=== PATIENT | female | born 1985 | race Caucasian/White ===

== ENCOUNTER → 2020-03-13 13:18 | Outpatient (CLI) | payer OTHER, SELFPAY ==
--- NOTE | ~2020-03-13 | US_ITS ---
EXAMINATION: US venous doppler [facility] DATE: 03/13/2020 13:52 INDICATION: Left lower limb pain and swelling. Varicose veins. TECHNIQUE: Grayscale ultrasound images without and with compression and Doppler ultrasound images of the left lower extremity veins were obtained. COMPARISON: None. FINDINGS: The visualized portions of left common femoral vein, profunda (deep) femoral vein, femoral vein, popl iteal vein, peroneal veins, posterior tibial veins, gastrocnemius vein, soleal vein and greater saphe nous vein outflow are patent. IMPRESSION: 1. No deep venous thrombosis in the left lower limb. Reviewed, dictated and finalized at location A.
== END ==
PROVIDERS: PCP Physician Assistant
DX: M79.669 Pain in unspecified lower leg (principal)
CPT/HCPCS: 93971

== ENCOUNTER 2020-04-28 11:47 | Inpatient (IN) | payer OTHER, SELFPAY ==
[2020-04-28] VITALS (8 sets, daily range): BP systolic 93–144; BP diastolic 53–88; PULSE 100–124; RESP 16–27; TEMP 37–39.4; O2SAT 94–100
--- NOTE | ~2020-04-28 | XR_ITS ---
CORRECTED REPORT Report associated to incorrect patient moved from [id number]. 04/28/20 [facility] [place] EXAMINATION: XR chest 2V EXAM DATE: 04/28/2020 14:44 INDICATION: Shortness of breath, rapid heart rate, nausea vomiting. Gallbladder disease. TECHNIQUE: Frontal and lateral projections of the chest obtained and reviewed. Comparison is made to prior examination from 11/08/2019. FINDINGS: The lungs are clear. There are no pleural effusions. The cardiomediastinal silhouette is within normal limits. There is no pneumothorax suspected. The bones and soft tissues are unremarkable. IMPRESSION: No acute cardiopulmonary findings. Reviewed, dictated and finalized at location B. VALERY
--- NOTE | ~2020-04-28 | US_ITS ---
EXAMINATION: US right upper quadrant DATE: 04/28/2020 18:10 INDICATION: Upper abdominal pain, transaminitis TECHNIQUE: Multiple grayscale and Doppler ultrasound images of the abdomen were obtained. COMPARISON: None available FINDINGS: The examination is limited by the patient's body habitus. Bowel gas obscures visualization of the pancreas. The visualized portions of the pancreas are unremarkable. The liver demonstrates inc reased echogenicity, heterogenous echotexture, and decreased through transmission. No surface nodular ity. Normal hepatopetal flow in the main portal vein. There appears to be sludge in the gallbladder. No gallbladder wall thickening or pericholecystic fluid are identified. The normal common bile duct m easures 4 mm. Sonographic Devries sign is positive. IMPRESSION: 1. Possible gallbladder sludge and positive sonographic Devries sign without gallbladder wall thickeni ng or pericholecystic fluid. Consider nuclear hepatobiliary scan if there is high clinical concern fo r cholecystitis. 2. Diffuse hepatic steatosis. Reviewed, dictated and finalized at location A. IMPRESSION: 1. Possible gallbladder sludge and positive sonographic Devries sign without gal lbladder wall thickening or pericholecystic fluid. Consider nuclear hepatobilia ry scan if there is high clinical concern for cholecystitis. 2. Diffuse hepatic steatosis.
--- NOTE | ~2020-04-28 | MR_ITS ---
EXAMINATION: MR MRCP wo/w con/w 3D wo ind DATE: 04/30/2020 13:41 INDICATION: Right upper quadrant abdominal pain. Fever. TECHNIQUE: Magnetic resonance imaging (MRI) of the abdomen was performed without and with 20 mL Multi Cara intravenous contrast. Sequences included coronal T2-weighted FS FSE, coronal T2-weighted FSE, a xial T1-weighted LAVA, coronal FS FIESTA, axial dual-echo T1-weighted SPGR, coronal lava-FLEX, sagitt al T2-weighted FSE, axial T2-weighted FSE, and axial DWI. Thick-slab T2-weighted FSE images were obta ined for magnetic resonance cholangiopancreatography (MRCP). Maximum intensity projection 3-D reconst ructions of the volumetric data were created by the technologist. Postcontrast sequences included cor onal LAVA-flex and time course of axial T1-weighted LAVA. COMPARISON: Ultrasound 04/28/2020, CT abdomen and pelvis 04/28/2020, hepatobiliary scintigraphy 04/28/20 20 FINDINGS: ABDOMEN MRI: There is diffuse hepatic steatosis. The gallbladder is normal in size and contains filli ng defects that may be sludge or stones. There is a small sliding hiatal hernia. The spleen, pancreas , adrenal glands, and kidneys are normal. There are no dilated loops of bowel. There are no pathologi jer enlarged lymph nodes. There is no free intraperitoneal fluid. ABDOMEN MRCP: The common duct is normal and measures 3 mm. No choledocholithiasis. IMPRESSION: 1. Filling defects in the gallbladder that may be sludge or stones. 2. Diffuse hepatic steatosis. 3. Small sliding hiatal hernia. Reviewed, dictated and finalized at location A.
--- NOTE | ~2020-04-28 | CT_ITS ---
EXAMINATION: CT abdomen pelvis w con INDICATION: Upper abdominal pain TECHNIQUE: Computed tomographic images of the abdomen and pelvis were obtained after the administrati on of 100 cc of Omnipaque 350 intravenous contrast. The dose-length product (DLP) was 1523.36 mGy-cm. Automated exposure control and iterative reconstruction technique were employed. COMPARISON: None available FINDINGS: Minimal dependent atelectasis is present in the lung bases. The heart size is normal. The l iver is diffusely low in attenuation when compared with the spleen, consistent with hepatic steatosis . There is a small sliding hiatal hernia. The gallbladder, spleen, pancreas, and adrenal glands are n ormal. The kidneys are unremarkable. No pathologically enlarged abdominal or pelvic lymph nodes are i dentified. There is no free intraperitoneal gas or evidence of bowel obstruction. The appendix is nor mal. There is mild lumbar spondylosis. IMPRESSION: 1. Small sliding hiatal hernia. 2. Diffuse hepatic steatosis. Reviewed, dictated and finalized at location A.
--- NOTE | ~2020-04-28 | NM_ITS ---
EXAMINATION: NM hepatobiliary wo pharm DATE: 04/29/2020 14:29 INDICATION: Right upper quadrant pain COMPARISON: None. TECHNIQUE: 5.1 mCi Tc-99m mebrofenin (Choletec) was administered intravenously. Scintigraphic images of the abdomen were obtained for six hours. FINDINGS: There is normal clearance of radiotracer from the blood pool. There is homogeneous tracer u ptake by the liver. At 60 minutes, activity had not progressed the bowel or gallbladder. Minimal acti vity is seen in the bowel at the 3.5 hours time point. Mild increase in bowel activity is seen at the six hour time point with absent activity in the gallbladder. IMPRESSION: 1. Delayed progression of activity from the liver into the bowel and gallbladder by 60 minute time p oint, consistent with hepatic dysfunction. 2. No gallbladder activity at the six hour time point, consistent with gallbladder dysfunction. Reviewed, dictated and finalized at location A. IMPRESSION: 1. Delayed progression of activity from the liver into the bowel and gallbladd er by 60 minute time point, consistent with hepatic dysfunction. 2. No gallbladder activity at the six hour time point, consistent with gallblad ashwin dysfunction.
--- NOTE | 2020-04-28 12:46 | ECG_ITS ---
Measurements Intervals [place] Rate: 93 P: 42 IA: 165 QRS: 69 QRSD: 72 T: 32 QT: 328 QTc: 409 Interpretive Statements SINUS RHYTHM LOW QRS VOLTAGE IN PRECORDIAL LEADS BASELINE ARTIFACT- II, III BORDERLINE ECG Electronically Signed On 04-28-2020 13:18:15 CDT by Cole Nieves D.O.
[2020-04-28 12:58] LABS: Basophils Absolute Auto 0.1 K/mm3 (0.0-0.1); Basophils Percent Auto 0.4 % (0.2-1.2); Eosinophils Percent Auto 0.2 % (0-4.4); Hemoglobin 13.6 g/dL (12.0-15.0); Immature Granulocyte Absolute 0.05 K/mm3 (0.00-0.031); Immature Granulocyte Percent A 0.4 % (0-0.5); Lymphocytes Absolute Auto 0.72 K/mm3 (0.9-3.2); Lymphocytes Percent Auto 5.5 % (18.3-44.2); Mean Corpuscular HGB Conc 33.2 g/dl (32-36); Mean Corpuscular Hemoglobin 28.8 pg (26-34); Mean Corpuscular Volume 86.7 fl (80-100); Monocytes Absolute Auto 0.4 K/mm3 (0.1-0.6); Neutrophils Percent Auto 90.5 % (45.5-73.1); Platelet Count Result 304 k/mm3 (150-375); Red Blood Count 4.73 M/mm3 (4.2-5.4); Red Cell Distribution Width 12.1 % (11.5-14.5); White Blood Count 13.2 K/mm3 (4.5-10.0)
[2020-04-28 13:09] LABS: Alanine Aminotransferase 324 U/L (4-35); Albumin Level 4.1 g/dL (3.5-5.1); Alkaline Phosphatase 137 U/L (38-126); Anion Gap 6 mmol/L (8-16); Aspartate Amino Transferase 401 U/L (14-36); Bilirubin,Total 1.1 mg/dL (0.2-1.3); Blood Urea Nitrogen 11 mg/dL (7-17); Calcium 9.7 mg/dL (8.4-10.2); Carbon Dioxide 27 mmol/L (22-30); Chloride 102 mmol/L (98-107); Estimated CRCL calculation 131 ml/min; Estimated Glomerular Filt Rate > 60; Glucose 140 mg/dL (65-105); Lipase 142 U/L (23-300); Potassium 4.5 mmol/L (3.4-5.0); Sodium 135 mmol/L (137-145)
[2020-04-28 14:04] LABS: Add Urine Microscopic? NO; Appearance Urine Clear (Clear); Bilirubin Urine Negative (Negative); Blood Urine Negative (Negative); Color Urine Yellow (Yellow); Glucose Urine UA Negative (Negative); Ketones Urine Negative (Negative); Leukocyte Esterase Ur Negative LEU/UL (Negative); Nitrate Urine Negative (Negative); Protein Urine Negative (Negative); Specific Grav Ur 1.016 (1.001-1.035); Urobilinogen Urine Negative mg/dL (<2.0)
--- NOTE | 2020-04-28 17:45 | ED.ABDPAIN ---
HPI - Abdominal Pain General Chief Complaint: Abdominal Pain <Deborah Ventura PA-C - Last Filed: 04/28/20 22:25> Stated Complaint: severe upper abd pain <GODWIN Mari Last Filed: 04/28/20 22:25> Time Seen by Provider: 04/28/20 17:36 <Deborah Ventura PA-C - Last Filed: 04/28/20 22:25> Source: patient <GODWIN Mari Last Filed: 04/28/20 22:25> Mode of arrival: wheelchair <GODWIN Mari Last Filed: 04/28/20 22:25> Limitations: no limitations <GODWIN Mari Last Filed: 04/28/20 22:25> History of Present Illness HPI narrative: This is a 35 year old female that presents to the ER for upper abdominal pain since this morning. Reports the pain is sharp in nature. It has been constant since onset. Associated with nausea and vomiting. The pain radiates into her chest. Reports history of gallbladder disease, but they declined surgery at the time due to her history of von Willebrand's disease. Denies fever, dysuria, hematuria. <Deborah Ventura PA-C - Last Filed: 04/28/20 22:25> Related Data Home Medications: Home Medications Medication Instructions Recorded Confirmed antihemophilic factor-vWF 25 ml IV ONCE PRN 04/28/20 04/29/20 [Humate-P] celecoxib 100 mg PO BID 04/28/20 04/29/20 sumatriptan succinate See Rx Instructions .ROUTE 04/28/20 04/29/20 .COMPLEX PRN Systane Complete 1 drp OPHTHALMIC (EYE) PRN PRN 04/29/20 04/29/20 acetaminophen [Acetaminophen Extra 1,000 mg PO PRN PRN 04/29/20 04/29/20 Strength] aminocaproic acid See Rx Instructions .ROUTE .COMPLEX 04/29/20 04/29/20 cholecalciferol (vitamin D3) 5,000 unit PO 4XW 04/29/20 04/29/20 [Vitamin D3] cyclobenzaprine 5 mg PO Q8H PRN 04/29/20 04/29/20 desmopressin See Rx Instructions .ROUTE 04/29/20 04/29/20 .COMPLEX PRN esomeprazole magnesium [Nexium] 20 mg PO DAILY 04/29/20 04/29/20 fexofenadine [Letty Allergy] 180 mg PO HS 04/29/20 04/29/20 ketotifen fumarate [Allergy Eye 1 drp OPHTHALMIC (EYE) DAILY PRN 04/29/20 04/29/20 (ketotifen)] levothyroxine [Synthroid] 25 mcg PO DAILY 04/29/20 04/29/20 vitamin B complex [B-Complex] 1 tablet PO DAILY 04/29/20 04/29/20 <Deborah Ventura PA-C - Last Filed: 04/28/20 22:25> Allergies/Adverse Reactions: Allergies Allergy/AdvReac Type Severity Reaction Status Date / Time erythromycin base Allergy Unknown Verified 04/28/20 12:50 NSAIDS (Non-Steroidal AdvReac Other Verified 04/28/20 12:50 Anti-Inflamma <Deborah Ventura PA-C - Last Filed: 04/28/20 22:25> Review of Systems Review of Systems: Narrative: CONSTITUTIONAL: Denies fever CARDIOVASCULAR: Denies chest pain RESPIRATORY: Denies cough or dyspnea. GASTROINTESTINAL: Reports abdominal pain, nausea, vomiting GENITOURINARY: Denies dysuria or hematuria. <Deborah Ventura PA-C - Last Filed: 04/28/20 22:25> All systems reviewed & are unremarkable except as noted in HPI and below <Deborah Ventura PA-C - Last Filed: 04/28/20 22:25> [facility] Past Medical History Medical History: Medical History History of anxiety History of hypothyroidism History of von Willebrand's disease <Deborah Ventura PA-C - Last Filed: 04/28/20 22:25> Family History Family History: Family History Mother Hypertension Father Hypertension Diabetes mellitus HLD (hyperlipidemia) <Deborah Ventura PA-C - Last Filed: 04/28/20 22:25> Social History Social History: Social History Smoking status: Never smoker Alcohol intake: current Drinks per week: 1 Substance use: never Gender identity (if verbalized by the patient): Female Sexual Orientation (if Verbalized by the Patient): Straight or Heterosexual Spiritual care concerns: No <Deborah Ventura PA-C - Last Filed: 04/28/20 22:25> Exam Na
[2020-04-28] MEDS: ONDANSETRON INJ 4 MG/2 ML VIAL IV PUSH (18:18)
[2020-04-28] MEDS: SODIUM CHLORIDE 0.9% IV 1,000 ML 999 ML IV CONT ×3 (18:18→22:27)
[2020-04-28] MEDS: MORPHINE SULFATE (*CRX) 4 MG/ML INJ IV PUSH (18:18)
[2020-04-28] MEDS: FAMOTIDINE 20 MG/2 ML VIAL IV PUSH (18:19)
[2020-04-28 18:37] LABS: Lactic Acid Reflex 2.2 mmol/L (0.7-2.1)
[2020-04-28 18:49] LABS: Troponin I < 0.012 ng/mL (0.000-0.034)
[2020-04-28] MEDS: METOCLOPRAMIDE HCL INJ 10 MG/2 ML VIAL IV PUSH (20:16)
[2020-04-28] MEDS: diazePAM INJ (*CRX) 10 MG/2 ML SYRINGE 5 MG IV PUSH (20:17)
[2020-04-28] MEDS: diphenhydrAMINE HCl INJ 50 MG/ML VIAL 25 MG IV PUSH (20:51)
[2020-04-28 21:23] LABS: Reflex Lactic Acid Yes or No Add Lactic
[2020-04-28 22:40] LABS: Acetaminophen 13 ug/mL (10-30); Lactic Acid 0.9 mmol/L (0.7-2.1)
[2020-04-28 23:36] LABS: Hepatitis B Surface Antigen Negative (Negative)
[2020-04-28 23:42] LABS: HAV RESULT Negative (Negative); Hepatitis B Core IgM Result Negative (Negative)
[2020-04-28 23:53] LABS: Hepatitis C Virus Antibody Negative (Negative)
[2020-04-29] VITALS (17 sets, daily range): BP systolic 94–135; BP diastolic 56–78; PULSE 80–109; RESP 18–25; TEMP 36.7–37.5; O2SAT 94–99; BMI 42.3
[2020-04-29] MEDS: SODIUM CHLORIDE 0.9% IV 1,000 ML 999 ML IV CONT (00:10)
--- NOTE | 2020-04-29 00:19 | PC.NURSE ---
REPORT GIVEN TO CONSTANTIN AT 7844, PT PREPARING TO BE TAKEN TO 250. DR. ABDI WANTS PT TO GET A 4TH LITER OF FLUID PRIOR TO BEING TRANSFERRED.
--- NOTE | 2020-04-29 00:23 | PC.NURSE ---
AT 0022 PT CHANGED TO IMU BED; REC'D ASSIGNMENT OF 200 AT THIS TIME.
[2020-04-29] MEDS: SODIUM CHLORIDE 0.9% IV 1,000 ML 125 ML IV CONT ×3 (01:22→17:45)
[2020-04-29] MEDS: ONDANSETRON INJ 4 MG/2 ML VIAL IV PUSH ×5 (01:22→20:17)
[2020-04-29] MEDS: MORPHINE SULFATE (*CRX) 4 MG/ML INJ IV PUSH ×3 (01:31→20:18)
--- NOTE | 2020-04-29 01:58 | ADMGEN ---
This patient, Alee Acuña, was admitted to IMU Room 200-01 FROM ER 04/29/20 0109. Patient/family oriented to hospital policies and general routines including ID bracelet, bed and alarms, visiting hours, pain management, procedures, bathroom and other care routines, personal items, smoking policy, room service/diet, and visiting hours. Valuables list has been completed. Information on how to activate the Rapid Response Team has been discussed. Patient/Family are encouraged to report perceived risks to care and to ask questions if they do not understand what they are told or what they should do.
[2020-04-29 04:49] LABS: Hematocrit 38.9 % (37.0-47.0); Hemoglobin 12.3 g/dL (12.0-15.0); Mean Corpuscular HGB Conc 31.6 g/dl (32-36); Mean Corpuscular Hemoglobin 28.8 pg (26-34); Mean Corpuscular Volume 91.1 fl (80-100); Mean Platelet Volume 9.1 fl (7.4-10.4); Platelet Count Result 248 k/mm3 (150-375); Red Blood Count 4.27 M/mm3 (4.2-5.4); Red Cell Distribution Width 12.9 % (11.5-14.5); White Blood Count 9.8 K/mm3 (4.5-10.0)
[2020-04-29 06:36] LABS: Alanine Aminotransferase 360 U/L (4-35); Albumin Level 3.6 g/dL (3.5-5.1); Alkaline Phosphatase 111 U/L (38-126); Anion Gap 5 mmol/L (8-16); Aspartate Amino Transferase 246 U/L (14-36); Bilirubin Direct 1.3 mg/dL (0-0.3); Bilirubin,Total 3.6 mg/dL (0.2-1.3); Blood Urea Nitrogen 10 mg/dL (7-17); Calcium 8.1 mg/dL (8.4-10.2); Carbon Dioxide 23 mmol/L (22-30); Chloride 108 mmol/L (98-107); Estimated CRCL calculation 117 ml/min; Estimated Glomerular Filt Rate > 60; Glucose 108 mg/dL (65-105); Potassium 4.1 mmol/L (3.4-5.0); Sodium 136 mmol/L (137-145)
--- NOTE | 2020-04-29 12:15 | PM.CNGS ---
Assessment and Plan Assessment and plan (1) Sepsis: Qualifiers: Sepsis acute organ dysfunction status: without acute organ dysfunction Sepsis type: sepsis due to unspecified organism Qualified Code(s): A41.9 - Sepsis, unspecified organism Code(s): A41.9 - Sepsis, unspecified organism Status: Acute Assessment and Plan: I have reviewed the imaging. The patient has findings that could be concerning for ascending cholangitis. She does not have evidence of cholelithiasis, but distal common bile duct obstruction has not been ruled out yet. She was started on broad-spectrum IV antibiotics. I would like to get a HIDA scan today to assess for cystic duct occlusion or common duct occlusion. It would also benefit to have GI evaluation as well. Patient may ultimately require laparoscopic cholecystectomy, but this will be slightly increased risk due to her von Willebrand's disease. Will have to pre-treat her with DDAVP. Will await the further testing and determine when at a safe time to proceed with surgery would be. (2) Elevated liver enzymes: Code(s): R74.8 - Abnormal levels of other serum enzymes Status: Acute (3) Abnormal findings on diagnostic imaging of gallbladder: Code(s): R93.2 - Abnormal findings on diagnostic imaging of liver and biliary tract Status: Acute (4) Von Willebrand disease, type I: Code(s): D68.0 - Von Willebrand's disease Status: Acute Additional Plan Thank you very much for allowing me to aid in the care of this patient History of Present Illness Consult details Consult date: 04/29/20 Reason for consult: abdominal pain Requesting physician: Deborah Ventura PA-C Narrative: This is a 35-year-old woman who presented to the emergency department last night with upper abdominal pain off and on for the past several months. Patient states that she woke up yesterday morning with abdominal pain. He had eaten fried chicken for dinner the night before. She has had multiple episodes like this in the past, but has not been able to identify anyone certain cause. She thought that maybe she had indigestion from taking treatment for von Willebrand's disease for a dental procedure. She has had a root canal done recently and was on antibiotics and treatment for the von Willebrand's disease for this. She also did have her gallbladder worked up several years ago and was told she had a gallbladder ejection fraction of 13%, but due to the von Willebrand's disease no surgery was recommended at that time. She denies any prior history of liver disease. She has been taking Tylenol at bedtime, but this has only been 1000 mg and does not take it throughout the remainder of the day. She denies any history of alcohol use. In the emergency department she was noted to have elevated liver enzymes and elevated white blood count. A gallbladder ultrasound showed possible gallbladder sludge with positive sonographic Devries sign and hepatic steatosis. A CT of her abdomen and pelvis was then obtained and this was essentially negative except for hepatic steatosis. She was admitted to the hospital for further treatment, and she did become afebrile. She has been started on broad-spectrum IV antibiotics and fevers have resolved. Her pain is somewhat better since being admitted as well. Review of Systems Review of Systems: All systems reviewed & are unremarkable except as noted in HPI and below Constitutional: Constitutional: Reports chills and Reports fever(s) Eyes: Eyes: Denies change in vision ENT: Denies hearing loss, Denies neck pain and Denies sore throat Cardiovascular: Cardiovascular: Denies chest pain and Denies dyspnea Respiratory: Respiratory: Denies cough, Denies dyspnea and Denies wheezing Gastrointestinal: Gastrointestinal: Reports as per HPI Genitourinary: Genitourinary: Denies hematuria and Denies dysuria Musculoskeletal: Musculoskeletal: Denies arthralgias, Denies joint
[2020-04-29 13:33] LABS: Glucose Point of Care 90 (65-105)
--- NOTE | 2020-04-29 15:39 | WPDGICN ---
Assessment and Plan Assessment and plan (1) Sepsis: Qualifiers: Sepsis acute organ dysfunction status: without acute organ dysfunction Sepsis type: sepsis due to unspecified organism Qualified Code(s): A41.9 - Sepsis, unspecified organism Code(s): A41.9 - Sepsis, unspecified organism Status: Acute Assessment and Plan: most likely GB source given location of pain and elevated liver enzymes hida scan pending to assess if cholecystitis, may need MRCP to check if bile duct obstruction (if hida scan is not helpful). will also ask hematology to see patient because most likely will require surgical intervention +/- ERCP based on clinical course and she normally gets infusion pre-surgery given history of von Willebrand (2) Elevated liver enzymes: Code(s): R74.8 - Abnormal levels of other serum enzymes Status: Acute Assessment and Plan: hepatitis panel negative, no etoh abuse related to biliary disease or cholecystitis continue with iv antibiotics (3) Abdominal pain: Qualifiers: Abdominal location: right upper quadrant Qualified Code(s): R10.11 - Right upper quadrant pain Code(s): R10.9 - Unspecified abdominal pain Status: Acute (4) Von Willebrand disease, type I: Code(s): D68.0 - Von Willebrand's disease Status: Acute (5) Abnormal findings on diagnostic imaging of gallbladder: Code(s): R93.2 - Abnormal findings on diagnostic imaging of liver and biliary tract Status: Acute GI Consult Note Consult date/time: 04/29/20 15:39 Reason for consult: elevated liver enzymes, abdominal pain HPI: Alee Acuña is a 35 year old female with history of von Willebrand for which she has required infusion before undergoing a surgical procedure. She came to the hospital with worsening upper abdominal pain that has been going on for the past several months. Several years ago was told that had gallbladder ejection fraction of 13%, but due to the von Willebrand's disease no surgery was recommended. She came with severe abdominal pain after eaten fried chicken. Also nausea and vomiting, headache and had fever up to 102 F. Blood work showed elevated liver enzymes with bili 3, transaminases 200-400's (denies any prior history of liver disease, no alcohol abuse). CT scan showed small sliding hiatal hernia, diffuse hepatic steatosis. also had leukocytosis wbc 13k. Started on antibiotics.Ultrasound showed possible gallbladder sludge and positive sonographic Devries sign without gallbladder wall thickening or pericholecystic fluid. Hida scan was ordered and surgery is in the case. Pain is better today but had more headache. Review of Systems Constitutional: Constitutional: Reports chills, Reports fever(s) and Denies headache(s) Eyes: Eyes: Denies blurry vision ENT: Reports Normal hearing present, Denies headache(s) and Denies neck pain Cardiovascular: Cardiovascular: Denies chest pain and Denies dyspnea Respiratory: Respiratory: Denies dyspnea Gastrointestinal: Gastrointestinal: Reports abdominal pain, Reports nausea and Reports vomiting Genitourinary: Genitourinary: Denies dysuria Musculoskeletal: Musculoskeletal: Denies neck pain Integumentary/Breasts: Skin/Breast: Denies dry skin Neurologic: Reports Normal hearing present, Denies headache(s) and Denies weakness Psychiatric: Psychiatric: Denies anxiety Endocrine: Endocrine: Denies change in body appearance Hematologic/Lymphatic: Hematologic/Lymphatic: Reports easy bleeding Allergic/Immunologic: Allergic/Immunologic: Denies urticaria PMF Past Medical History Medical History History of anxiety History of hypothyroidism History of von Willebrand's disease Family History Family History Mother Hypertension Father Hypertension Diabetes mellitus HLD (hyperlipidemia) Social His
--- NOTE | 2020-04-29 16:09 | PM.IMHP ---
H&P: HPI History of Present Illness Date/Time: 04/29/20 16:09 Chief complaint: Sepsis Narrative: Alee Acuña is a 35 year old female moderately obese with a medical history of von Willebrand apparently patient ate fried chicken and developed severe right upper quadrant pain nausea and vomiting and presented emergency department for further evaluation patient had a CT scan of the abdomen suspected gallbladder disease as well as elevated liver enzymes, patient does not have history liver disease or alcohol, hepatitis panel is negative, patient is seen by surgery service recommending patient may need MRCP and consult GI for further recommendation and ordered HIDA scan which is pending, patient is seen by both GI service and surgery service, HIDA scan is recommended for further evaluation and management, because of her history of von Willebrand in the event patient needs surgery health economist consulted. upon arrival patient had a fever elevated white, elevated lactic acid, tachycardia and tachypnea most likely sepsis most likely biliary source patient started on Zosyn will follow up on blood culture, states abdominal pain nausea or vomiting have subsided however is hungry and has headache. will continue home regimen, will monitor and further recommendation to follow. Review of Systems Review of Systems: All systems reviewed & are unremarkable except as noted in HPI and below PMFSH Past Medical History Medical History History of anxiety History of hypothyroidism History of von Willebrand's disease Family History Family History Mother Hypertension Father Hypertension Diabetes mellitus HLD (hyperlipidemia) Social History Social History Smoking status: Never smoker Alcohol intake: current Drinks per week: 1 Substance use: never Gender identity (if verbalized by the patient): Female Sexual Orientation (if Verbalized by the Patient): Straight or Heterosexual Spiritual care concerns: No Meds Home Medications and Allergies Home Medications Medication Instructions Recorded Confirmed Type antihemophilic factor-vWF 25 ml IV ONCE PRN 04/28/20 04/29/20 History [Humate-P] celecoxib 100 mg PO BID 04/28/20 04/29/20 History sumatriptan succinate See Rx Instructions .ROUTE 04/28/20 04/29/20 History .COMPLEX PRN Systane Complete 1 drp OPHTHALMIC (EYE) PRN PRN 04/29/20 04/29/20 History acetaminophen [Acetaminophen Extra 1,000 mg PO PRN PRN 04/29/20 04/29/20 History Strength] aminocaproic acid See Rx Instructions .ROUTE .COMPLEX 04/29/20 04/29/20 History cholecalciferol (vitamin D3) 5,000 unit PO 4XW 04/29/20 04/29/20 History [Vitamin D3] cyclobenzaprine 5 mg PO Q8H PRN 04/29/20 04/29/20 History desmopressin See Rx Instructions .ROUTE 04/29/20 04/29/20 History .COMPLEX PRN esomeprazole magnesium [Nexium] 20 mg PO DAILY 04/29/20 04/29/20 History fexofenadine [Letty Allergy] 180 mg PO HS 04/29/20 04/29/20 History ketotifen fumarate [Allergy Eye 1 drp OPHTHALMIC (EYE) DAILY PRN 04/29/20 04/29/20 History (ketotifen)] levothyroxine [Synthroid] 25 mcg PO DAILY 04/29/20 04/29/20 History vitamin B complex [B-Complex] 1 tablet PO DAILY 04/29/20 04/29/20 History Allergies Allergy/AdvReac Type Severity Reaction Status Date / Time erythromycin base Allergy Unknown Verified 04/28/20 12:50 NSAIDS (Non-Steroidal AdvReac Other Verified 04/28/20 12:50 Anti-Inflamma Vital Signs Vital Signs - 24 hr 04/28/20 17:15 04/28/20 20:52 04/28/20 22:43 Temperature 102.9 F H 102.0 F H Pulse Rate 101 H 112 H 124 H Respiratory Rate 17 20 22 H Blood Pressure 144/88 H 109/72 95/53 L Pulse Oximetry 98 97 94 04/28/20 23:40 04/28/20 23:53 04/29/20 00:45 Temperature 100.1 F H Pulse Rate 115 H 113 H 109 H Respiratory Rate 21 H 27 H
[2020-04-29] MEDS: SUMAtriptan SUCCINATE 25 MG TABLET 50 MG PO (17:43)
[2020-04-29] MEDS: PANTOPRAZOLE 40 MG TABLET PO (17:43)
[2020-04-29] MEDS: ACETAMINOPHEN 500 MG TABLET 1000 MG PO (20:16)
[2020-04-29] MEDS: LORATADINE 10 MG TABLET PO (20:17)
[2020-04-30] VITALS (12 sets, daily range): BP systolic 106–132; BP diastolic 68–85; PULSE 66–105; RESP 16–20; TEMP 36.3–36.9; O2SAT 97–100
[2020-04-30] MEDS: ACETAMINOPHEN 500 MG TABLET 1000 MG PO (02:29)
[2020-04-30] MEDS: SODIUM CHLORIDE 0.9% IV 1,000 ML 125 ML IV CONT ×2 (02:29→17:16)
[2020-04-30] MEDS: CYCLOBENZAPRINE HCL 5 MG TABLET PO (02:34)
[2020-04-30 04:47] LABS: Hematocrit 35.3 % (37.0-47.0); Hemoglobin 11.6 g/dL (12.0-15.0); Mean Corpuscular HGB Conc 32.9 g/dl (32-36); Mean Corpuscular Hemoglobin 28.9 pg (26-34); Mean Platelet Volume 9.4 fl (7.4-10.4); Platelet Count Result 206 k/mm3 (150-375); Red Blood Count 4.01 M/mm3 (4.2-5.4); Red Cell Distribution Width 12.7 % (11.5-14.5); White Blood Count 4.7 K/mm3 (4.5-10.0)
[2020-04-30 05:01] LABS: Alanine Aminotransferase 292 U/L (4-35); Albumin Level 3.4 g/dL (3.5-5.1); Alkaline Phosphatase 100 U/L (38-126); Anion Gap 6 mmol/L (8-16); Aspartate Amino Transferase 149 U/L (14-36); Bilirubin,Total 2.2 mg/dL (0.2-1.3); Blood Urea Nitrogen 6 mg/dL (7-17); Calcium 8.5 mg/dL (8.4-10.2); Carbon Dioxide 22 mmol/L (22-30); Chloride 107 mmol/L (98-107); Estimated CRCL calculation 117 ml/min; Estimated Glomerular Filt Rate > 60; Glucose 119 mg/dL (65-105); Potassium 3.8 mmol/L (3.4-5.0); Sodium 135 mmol/L (137-145)
[2020-04-30] MEDS: ONDANSETRON INJ 4 MG/2 ML VIAL IV PUSH (09:25)
--- NOTE | 2020-04-30 11:41 | WPDGIPROGNO ---
Progress Note: A&P Assessment and Plan (1) Elevated liver enzymes: Code(s): R74.8 - Abnormal levels of other serum enzymes Status: Acute Assessment and Plan: trending down but bili still 2. Will assess with MRCP to check biliary system, hida scan c/w with hepatic and GB dysfunction (2) Sepsis: Qualifiers: Sepsis acute organ dysfunction status: without acute organ dysfunction Sepsis type: sepsis due to unspecified organism Qualified Code(s): A41.9 - Sepsis, unspecified organism Code(s): A41.9 - Sepsis, unspecified organism Status: Acute Assessment and Plan: continue with iv abx (3) Abnormal findings on diagnostic imaging of gallbladder: Code(s): R93.2 - Abnormal findings on diagnostic imaging of liver and biliary tract Status: Acute Assessment and Plan: ? sludge, mrcp was ordered (4) Von Willebrand disease, type I: Code(s): D68.0 - Von Willebrand's disease Status: Acute Assessment and Plan: hematology to see in case she may need intervention and prophylaxis to prevent bleeding (5) Migraine: Code(s): G43.909 - Migraine, unspecified, not intractable, without status migrainosus Status: Acute Assessment and Plan: treated and resolved. Subjective Date/time seen: 04/30/20 11:41 Interval history: today she is feeling better. Abdominal pain almost gone, still nauseous. Also her migraine was treated with imitrex and resolved Review of Systems Review of Systems: All systems reviewed & are unremarkable except as noted in HPI and below Exam Const: General: comfortable and no acute distress HENMT: General nose exam: Normal nares present Eyes: General: appearance normal, both eyes and all related structures Neck: Neck: no JVD Resp: Auscultation: clear to auscultation bilaterally Cardio: Rate: regular rate Rhythm: regular rhythm GI: Inspection: non-distended GI Palp: Yes Soft to palpation Auscultation: normal bowel sounds Skin: General skin exam: normal color Neuro: General: gait normal Speech: normal speech Extrem: General: normal to inspection Psych: Mental Status: mental status grossly normal Objective Data Vital Signs Vital Signs: Vital Signs - 24 hr 04/29/20 12:00 04/29/20 14:00 04/29/20 16:00 Temperature 98.2 F Pulse Rate 80 81 87 Respiratory Rate 20 Blood Pressure 124/76 Pulse Oximetry 97 04/29/20 16:41 04/29/20 18:00 04/29/20 20:00 Temperature 98.6 F 98.5 F Pulse Rate 87 83 81 Respiratory Rate 20 18 Blood Pressure 135/78 121/74 Pulse Oximetry 97 99 04/29/20 22:00 04/29/20 23:50 04/30/20 00:00 Temperature 98.0 F Pulse Rate 93 95 105 H Respiratory Rate 20 Blood Pressure 124/74 Pulse Oximetry 96 04/30/20 02:00 04/30/20 04:00 04/30/20 06:00 Temperature 98.2 F Pulse Rate 85 71 66 Respiratory Rate 20 Blood Pressure 106/68 Pulse Oximetry 97 04/30/20 08:00 Temperature 98.4 F Pulse Rate 71 Respiratory Rate 16 Blood Pressure 132/82 Pulse Oximetry 98 Intake/Output Intake/Output: Intake & Output 04/27/20 04/28/20 04/29/20 04/30/20 23:59 23:59 23:59 23:59 Intake Total 3150 3300 1500 Output Total 2400 500 Balance 3150 900 1000 Meds/Results Medications: Active Medications Generic Name Dose Route Start Last Admin Trade Name Freq PRN Reason Stop Dose Admin Cyclobenzaprine HCl 5 mg 04/29/20 14:53 04/30/20 02:34 Flexeril PO 5 mg Q8H PRN Administration Muscle Spasm Piperacillin/Tazobactam/Dextrose 3.375 gm in 50 mls @ 100 mls/hr 04/29/20 04:00 04/30/20 08:56 Zosyn 3.375 Gm/D5w 50ml Pm IVPB 100 mls/hr Q6H MAGUI Administration Sodium Chloride 1,000 mls @ 125 mls/hr 04/29/20 01:10 04/30/20 02:29 Normal Saline Iv IV CONT 125 mls/hr .Q8H MAGUI Administration Acetaminophen 1,000 mg in 100 mls @ 400 mls/hr 04/30/20 10:15 Ofirmev 1,000 Mg Ivpb IVPB 05/01/20 10:16 Q6H PRN Pa
--- NOTE | 2020-04-30 14:54 | PM.PNGS ---
Progress Note: A&P Assessment and Plan (1) Von Willebrand disease, type I: Code(s): D68.0 - Von Willebrand's disease Status: Acute Assessment and Plan: Discussed surgical concerns with Dr. Ruff. Due to her requiring multiple doses of Humate and rapid testing of bleeding times, she will need to be transferred to [facility] to be able to undergo laparoscopic cholecystectomy. (2) Abnormal findings on diagnostic imaging of gallbladder: Code(s): R93.2 - Abnormal findings on diagnostic imaging of liver and biliary tract Status: Acute Assessment and Plan: Gallbladder likely source of bacteremia. I have discussed that laparoscopic cholecystectomy would be the best option to prevent further bacteremia or other complications. This will have to be done at a tertiary facility. Subjective Subjective Date/Time Seen: 04/30/20 14:54 Patient denies nausea/vomiting. Feels feverish if tylenol wears off. Exam GI: GI Palp: Yes Soft to palpation, No Tenderness to palpation present (GI) and No Guarding due to palpation present (GI) Objective Data Vital Signs Vital Signs: Vital Signs - 24 hr 04/29/20 16:00 04/29/20 16:41 04/29/20 18:00 Temperature 37.0 C Pulse Rate 87 87 83 Respiratory Rate 20 Blood Pressure 135/78 Pulse Oximetry 97 04/29/20 20:00 04/29/20 22:00 04/29/20 23:50 Temperature 36.9 C 36.7 C Pulse Rate 81 93 95 Respiratory Rate 18 20 Blood Pressure 121/74 124/74 Pulse Oximetry 99 96 04/30/20 00:00 04/30/20 02:00 04/30/20 04:00 Temperature 36.8 C Pulse Rate 105 H 85 71 Respiratory Rate 20 Blood Pressure 106/68 Pulse Oximetry 97 04/30/20 06:00 04/30/20 08:00 04/30/20 12:00 Temperature 36.9 C 36.8 C Pulse Rate 66 71 80 Respiratory Rate 16 16 Blood Pressure 132/82 123/85 Pulse Oximetry 98 99 Intake/Output Intake/Output: Intake & Output 04/27/20 04/28/20 04/29/20 04/30/20 23:59 23:59 23:59 23:59 Intake Total 3150 3300 1550 Output Total 2400 500 Balance 3150 900 1050 Meds/Results Medications: Active Medications Generic Name Dose Route Start Last Admin Trade Name Freq PRN Reason Stop Dose Admin Cyclobenzaprine HCl 5 mg 04/29/20 14:53 04/30/20 02:34 Flexeril PO 5 mg Q8H PRN Administration Muscle Spasm Piperacillin/Tazobactam/Dextrose 3.375 gm in 50 mls @ 100 mls/hr 04/29/20 04:00 04/30/20 09:25 Zosyn 3.375 Gm/D5w 50ml Pm IVPB Infused Q6H MAGUI Infusion Sodium Chloride 1,000 mls @ 125 mls/hr 04/29/20 01:10 04/30/20 02:29 Normal Saline Iv IV CONT 125 mls/hr .Q8H MAGUI Administration Acetaminophen 1,000 mg in 100 mls @ 400 mls/hr 04/30/20 10:15 Ofirmev 1,000 Mg Ivpb IVPB 05/01/20 10:16 Q6H PRN Pain Rated 4-6 Levothyroxine Sodium 25 mcg 04/30/20 06:30 04/30/20 06:20 Synthroid PO Not Given DAILY@0630 MAGUI Loratadine 10 mg 04/29/20 21:00 04/29/20 20:17 Claritin PO 05/29/20 21:01 10 mg HS MAGUI Administration Morphine Sulfate 4 mg 04/29/20 01:10 04/29/20 20:18 Morphine Sulfate Inj (*Crx) IV PUSH 4 mg Q4H PRN Administration Pain Rated 7-10 Non-Formulary Medication 2,500 mg 04/29/20 15:00 Aminocaproic Acid .ROUTE 05/29/20 15:01 .COMPLEX MAGUI Non-Formulary Medication 25 ml 04/29/20 14:53 Antihemophilic Factor-Vwf [Humate-P] IVPB ONCE PRN for severe bleeding Non-Formulary Medication 10 mcg 04/29/20 14:53 Desmopressin XX .COMPLEX PRN Bleeding Ketotifen Fumarate 1 drop 04/29/20 15:12 Allergy Eye ( EACH EYE 05/29/20 15:13 Ketotifen) = Non DAILY PRN Formulary, Can Allergy Symptoms Patient Use From Home? Non-Formulary Medication 1 drop 04/29/20 14:53 Systane Complete EACH EYE PRN PRN Dry Eye(S) Ondansetron HCl 4 mg 04/29/20 01:10 04/30/20 09:25 Zofran Inj IV PUSH 4 mg Q4H PRN Administration Nausea Pantoprazole Sodium 40 mg 04/30/20 09:00 04/29/20
--- NOTE | 2020-04-30 19:02 | PM.IMPN ---
Progress Note: A&P Assessment and Plan (1) Abdominal pain: Qualifiers: Abdominal location: right upper quadrant Qualified Code(s): R10.11 - Right upper quadrant pain Code(s): R10.9 - Unspecified abdominal pain Status: Acute Assessment and Plan: 04/30/20 19:02 Alee Acuña is a 35 year old female moderately obese with a medical history of von Willebrand apparently patient ate fried chicken and developed severe right upper quadrant pain nausea and vomiting and presented emergency department for further evaluation patient had a CT scan of the abdomen suspected gallbladder disease as well as elevated liver enzymes, patient does not have history liver disease or alcohol, hepatitis panel is negative, patient is seen by surgery service recommending patient may need MRCP and consult GI for further recommendation and ordered HIDA scan which is pending, patient is seen by both GI service and surgery service, HIDA scan is recommended for further evaluation and management, because of her history of von Willebrand in the event patient needs surgery video arcade manager consulted. upon arrival patient had a fever elevated white, elevated lactic acid, tachycardia and tachypnea most likely sepsis most likely biliary source patient started on Zosyn will follow up on blood culture, states abdominal pain nausea or vomiting have subsided however is hungry and has headache. will continue home regimen, will monitor and further recommendation to follow. 0n 04/30 Today patient is feeling much better some nausea but no vomiting abdominal pain is better denies any fever or chills patient had MRCP he does show patient has cholecystitis, the surgery service would like patient to be transferred [facility], I spoke her hematology Dr. Quan Bui and he has accepted the patient I spoke with Dr. Palacios [facility] his extubate the patient patient is waiting for the transfer. (2) Sepsis: Qualifiers: Sepsis acute organ dysfunction status: without acute organ dysfunction Sepsis type: sepsis due to unspecified organism Qualified Code(s): A41.9 - Sepsis, unspecified organism Code(s): A41.9 - Sepsis, unspecified organism Status: Acute Assessment and Plan: upon arrival patient had a fever elevated white, elevated lactic acid, tachycardia and tachypnea most likely sepsis most likely biliary source patient started on Zosyn will follow up on blood culture (3) Von Willebrand disease, type I: Code(s): D68.0 - Von Willebrand's disease Status: Acute Assessment and Plan: will consult video arcade manager oncologist further recommendation (4) Elevated liver enzymes: Code(s): R74.8 - Abnormal levels of other serum enzymes Status: Acute Assessment and Plan: most likely secondary to gallbladder disease Subjective Date/time seen: 04/30/20 19:02 Alee Acuña is a 35 year old female moderately obese with a medical history of von Willebrand apparently patient ate fried chicken and developed severe right upper quadrant pain nausea and vomiting and presented emergency department for further evaluation patient had a CT scan of the abdomen suspected gallbladder disease as well as elevated liver enzymes, patient does not have history liver disease or alcohol, hepatitis panel is negative, patient is seen by surgery service recommending patient may need MRCP and consult GI for further recommendation and ordered HIDA scan which is pending, patient is seen by both GI service and surgery service, HIDA scan is recommended for further evaluation and management, because of her history of von Willebrand in the event patient needs surgery video arcade manager consulted. upon arrival patient had a fever elevated white, elevated lactic acid, tachycardia and tachypnea most likely sepsis most likely biliary source patient started on Zosyn will follow up on blood culture, states abdominal pain nausea or vomiting have subside
--- NOTE | 2020-04-30 20:32 | PHAR ---
Home medication identified and returned to IMU. Nexium 20mg and Letty 180mg
[2020-05-01] VITALS (8 sets, daily range): BP systolic 110–123; BP diastolic 60–88; PULSE 55–94; RESP 12–22; TEMP 35.7–36.9; O2SAT 98–100
[2020-05-01] MEDS: SODIUM CHLORIDE 0.9% IV 1,000 ML 125 ML IV CONT ×2 (02:58→11:04)
[2020-05-01] MEDS: ONDANSETRON INJ 4 MG/2 ML VIAL IV PUSH ×2 (03:57→08:23)
[2020-05-01 04:42] LABS: Hematocrit 35.3 % (37.0-47.0); Hemoglobin 11.8 g/dL (12.0-15.0); Mean Corpuscular HGB Conc 33.4 g/dl (32-36); Mean Corpuscular Volume 86.7 fl (80-100); Mean Platelet Volume 9.4 fl (7.4-10.4); Platelet Count Result 217 k/mm3 (150-375); Red Blood Count 4.07 M/mm3 (4.2-5.4); Red Cell Distribution Width 12.9 % (11.5-14.5); White Blood Count 3.7 K/mm3 (4.5-10.0)
[2020-05-01 05:02] LABS: Alanine Aminotransferase 251 U/L (4-35); Albumin Level 3.4 g/dL (3.5-5.1); Alkaline Phosphatase 98 U/L (38-126); Anion Gap 7 mmol/L (8-16); Aspartate Amino Transferase 99 U/L (14-36); Blood Urea Nitrogen 8 mg/dL (7-17); Calcium 8.3 mg/dL (8.4-10.2); Carbon Dioxide 24 mmol/L (22-30); Chloride 107 mmol/L (98-107); Estimated CRCL calculation 133 ml/min; Estimated Glomerular Filt Rate > 60; Glucose 108 mg/dL (65-105); Potassium 3.9 mmol/L (3.4-5.0); Sodium 138 mmol/L (137-145)
--- NOTE | 2020-05-01 08:15 | WPDGIPROGNO ---
Progress Note: A&P Assessment and Plan (1) Sepsis: Qualifiers: Sepsis acute organ dysfunction status: without acute organ dysfunction Sepsis type: sepsis due to unspecified organism Qualified Code(s): A41.9 - Sepsis, unspecified organism Code(s): A41.9 - Sepsis, unspecified organism Status: Acute Assessment and Plan: overall better with iv antibiotics source is GB, MRCP showed filling defects in the gallbladder that may be sludge or stones but normal bile duct size, no choledocholithiasis she will need cholecystectomy but previously will need Humate and rapid testing of bleeding times at tertiary center before surgery given history of blood disorder. Primary is working to transfer patient to [facility] (2) Bacteremia: Code(s): R78.81 - Bacteremia Status: Acute Assessment and Plan: source GB (3) Elevated liver enzymes: Code(s): R74.8 - Abnormal levels of other serum enzymes Status: Acute Assessment and Plan: trending down, normal bilirubin today and MRCP normal bile duct- probably already passed stone (4) Cholecystitis: Code(s): K81.9 - Cholecystitis, unspecified Status: Acute Assessment and Plan: she will be transferred (5) Von Willebrand disease, type I: Code(s): D68.0 - Von Willebrand's disease Status: Acute Assessment and Plan: appreciate hematology recommendations (6) GERD (gastroesophageal reflux disease): Code(s): K21.9 - Gastro-esophageal reflux disease without esophagitis Status: Acute Assessment and Plan: she has been on nexium for almost 3 years she can follow up with me as outpatient (her GI doctor retired) Subjective Date/time seen: 05/01/20 08:15 Interval history: still nauseous, less pain. She also had bacteremia and already on iv antibiotics Review of Systems Review of Systems: All systems reviewed & are unremarkable except as noted in HPI and below Exam Const: General: comfortable and no acute distress HENMT: General nose exam: Normal nares present Eyes: General: appearance normal, both eyes and all related structures Neck: Neck: no JVD Resp: Auscultation: clear to auscultation bilaterally Cardio: Rate: regular rate Rhythm: regular rhythm GI: Inspection: non-distended GI Palp: Yes Soft to palpation and No Firmness to palpation present (GI) Auscultation: normal bowel sounds Skin: General skin exam: normal color Neuro: General: gait normal Speech: normal speech Extrem: General: normal to inspection Psych: Mental Status: mental status grossly normal Objective Data Vital Signs Vital Signs: Vital Signs - 24 hr 04/30/20 10:00 04/30/20 12:00 04/30/20 14:00 Temperature 98.3 F Pulse Rate 100 79 90 Respiratory Rate 16 Blood Pressure 123/85 Pulse Oximetry 99 04/30/20 16:00 04/30/20 18:00 04/30/20 20:00 Temperature 98.5 F 97.3 F L Pulse Rate 77 77 86 Respiratory Rate 18 18 Blood Pressure 118/80 116/71 Pulse Oximetry 100 99 04/30/20 22:00 05/01/20 00:00 05/01/20 01:23 Temperature 98.4 F Pulse Rate 73 62 62 Respiratory Rate 20 Blood Pressure 110/60 Pulse Oximetry 99 05/01/20 04:00 05/01/20 05:14 Temperature 98.4 F Pulse Rate 68 65 Respiratory Rate 22 H Blood Pressure 114/79 Pulse Oximetry 99 Intake/Output Intake/Output: Intake & Output 04/28/20 04/29/20 04/30/20 05/01/20 23:59 23:59 23:59 23:59 Intake Total 3150 3300 3590 2030 Output Total 2400 2100 3100 Balance 3150 900 1490 -1070 Meds/Results Medications: Active Medications Generic Name Dose Route Start Last Admin Trade Name Freq PRN Reason Stop Dose Admin Cyclobenzaprine HCl 5 mg 04/29/20 14:53 04/30/20 02:34 Flexeril PO 5 mg Q8H PRN Administration Muscle Spasm Piperacillin/Tazobactam/Dextrose 3.375 gm in 50 mls @ 100 mls/hr 04/29/20 04:00 05/01/20 04:30 Zosyn 3.375 Gm/D5w 50ml Pm IVPB Infused Q6H MAGUI Infusi
--- NOTE | 2020-05-01 16:18 | PM.IMPN ---
Progress Note: A&P Assessment and Plan (1) Abdominal pain: Qualifiers: Abdominal location: right upper quadrant Qualified Code(s): R10.11 - Right upper quadrant pain Code(s): R10.9 - Unspecified abdominal pain Status: Acute Assessment and Plan: 05/01/20 16:18 Alee Acuña is a 35 year old female moderately obese with a medical history of von Willebrand apparently patient ate fried chicken and developed severe right upper quadrant pain nausea and vomiting and presented emergency department for further evaluation patient had a CT scan of the abdomen suspected gallbladder disease as well as elevated liver enzymes, patient does not have history liver disease or alcohol, hepatitis panel is negative, patient is seen by surgery service recommending patient may need MRCP and consult GI for further recommendation and ordered HIDA scan which is pending, patient is seen by both GI service and surgery service, HIDA scan is recommended for further evaluation and management, because of her history of von Willebrand in the event patient needs surgery high school business teacher consulted. upon arrival patient had a fever elevated white, elevated lactic acid, tachycardia and tachypnea most likely sepsis most likely biliary source patient started on Zosyn will follow up on blood culture, states abdominal pain nausea or vomiting have subsided however is hungry and has headache. will continue home regimen, will monitor and further recommendation to follow. 0n 04/30 patient was feeling much better some nausea but no vomiting abdominal pain is better denies any fever or chills patient had MRCP he does show patient has cholecystitis, the surgery service would like patient to be transferred to [facility], I spoke her hematology Dr. Quan Bui and he has accepted the patient I spoke with Dr. Palacios [facility] service he has accepted the patient patient is waiting for the transfer. today 05/01 patient states feeling little better abdominal pain is better, still feels nausea, but no vomiting, denies any fever or chills, patient understands sees been accepted at [facility] we are waiting for transfer order, will continue to monitor (2) Sepsis: Qualifiers: Sepsis acute organ dysfunction status: without acute organ dysfunction Sepsis type: sepsis due to unspecified organism Qualified Code(s): A41.9 - Sepsis, unspecified organism Code(s): A41.9 - Sepsis, unspecified organism Status: Acute Assessment and Plan: upon arrival patient had a fever elevated white, elevated lactic acid, tachycardia and tachypnea most likely sepsis most likely biliary source patient started on Zosyn will follow up on blood culture (3) Von Willebrand disease, type I: Code(s): D68.0 - Von Willebrand's disease Status: Acute Assessment and Plan: will consult high school business teacher oncologist further recommendation (4) Elevated liver enzymes: Code(s): R74.8 - Abnormal levels of other serum enzymes Status: Acute Assessment and Plan: most likely secondary to gallbladder disease Subjective Date/time seen: 05/01/20 16:18 Alee Acuña is a 35 year old female moderately obese with a medical history of von Willebrand apparently patient ate fried chicken and developed severe right upper quadrant pain nausea and vomiting and presented emergency department for further evaluation patient had a CT scan of the abdomen suspected gallbladder disease as well as elevated liver enzymes, patient does not have history liver disease or alcohol, hepatitis panel is negative, patient is seen by surgery service recommending patient may need MRCP and consult GI for further recommendation and ordered HIDA scan which is pending, patient is seen by both GI service and surgery service, HIDA scan is recommended for further evaluation and management, because of her history of von Willebrand in the event patient needs surgery high school business teacher consulted. upon arrival p
[2020-05-01] MEDS: DOCUSATE SODIUM 100 MG CAPSULE PO (16:33)
--- NOTE | 2020-05-01 17:20 | PDONCCN ---
HPI - Date of Consult Date/Time: 05/01/20 17:20 Requesting Physician: Tonia Arellano DO Primary Care Provider: Chip Knapp, PA - Consult Narrative Reason for consult: Von Willebrand's disease Narrative: Alee Acuña is a 35 year old female This is a pleasant 35-year-old obese female with history of von Willebrand's type 1 disease who came into the hospital with complain of sudden onset of right upper quadrant pain along with nausea vomiting. Labs showed elevated liver enzyme. CT scan showed diffuse hepatic steatosis. HIDA scan showed no gallbladder activity consistent with gallbladder dysfunction. Patient was seen by surgery service and plan was to perform cholecystectomy. Patient denies any bleeding and bruising. Patient had her back surgery done last year and received Humate-P pre and post surgery. She is feeling better after starting on IV antibiotic and abdominal pain has much improved. Denies any other complaint including melena hematochezia. Nausea has also improved. Denies any fevers and chills. Review of Systems - Review of Systems All systems reviewed & are unremarkable except as noted in HPI and bel - Neurologic Reports hearing normal, Denies headache(s), Denies weakness [facility] Medical History: Medical History (Last Updated 05/01/20 @ 08:17 by Boris Layne MD) Bacteremia Cholecystitis GERD (gastroesophageal reflux disease) History of anxiety History of hypothyroidism History of von Willebrand's disease Migraine Family History: Family History (Last Reviewed 04/29/20 @ 12:19 by Dameon Stevens DO) Mother Hypertension Father Hypertension Diabetes mellitus HLD (hyperlipidemia) - Social History Social History: Social History (Last Reviewed 04/29/20 @ 12:19 by Dameon Stevens DO) Gender Identity: Gender identity (if verbalized by the patient): Female Sexual Orientation: Sexual Orientation (if Verbalized by the Patient): Straight or Heterosexual Alcohol Use: Alcohol intake: current Drinks per week: 1 Substance Use: Substance use: never Others: Spiritual care concerns: No Smoking Status: Smoking status: Never smoker Meds Home Medications Medication Instructions Recorded Confirmed Type antihemophilic factor-vWF 25 ml IV ONCE PRN 04/28/20 04/29/20 History [Humate-P] sumatriptan succinate See Rx Instructions .ROUTE 04/28/20 04/29/20 History .COMPLEX PRN Systane Complete 1 drp OPHTHALMIC (EYE) PRN PRN 04/29/20 04/29/20 History acetaminophen [Acetaminophen Extra 1,000 mg PO PRN PRN 04/29/20 04/29/20 History Strength] aminocaproic acid See Rx Instructions .ROUTE .COMPLEX 04/29/20 04/29/20 History cholecalciferol (vitamin D3) 5,000 unit PO 4XW 04/29/20 04/29/20 History [Vitamin D3] cyclobenzaprine 5 mg PO Q8H PRN 04/29/20 04/29/20 History desmopressin See Rx Instructions .ROUTE 04/29/20 04/29/20 History .COMPLEX PRN esomeprazole magnesium [Nexium] 20 mg PO DAILY 04/29/20 04/29/20 History fexofenadine [Letty Allergy] 180 mg PO HS 04/29/20 04/29/20 History ketotifen fumarate [Allergy Eye 1 drp OPHTHALMIC (EYE) DAILY PRN 04/29/20 04/29/20 History (ketotifen)] levothyroxine [Synthroid] 25 mcg PO DAILY 04/29/20 04/29/20 History vitamin B complex [B-Complex] 1 tablet PO DAILY 04/29/20 04/29/20 History Allergies Allergy/AdvReac Type Severity Reaction Status Date / Time erythromycin base Allergy Unknown Verified 04/28/20 12:50 NSAIDS (Non-Steroidal AdvReac Other Verified 04/28/20 12:50 Anti-Inflamma Results - Labs CBC & Chem 7: 05/01/20 04:15 05/01/20 04:15 Labs: Short CBC 05/01/20 Range/Units 04:15 WBC 3.7 L (4.5-10.0) K/mm3 Hgb 11.8 L (12.0-15.0) g/dL Hct 35.3 L (37.0-47.0) % Plt Count 217 (150-375) k/mm3 BMP 05/01/20 04:15 Sodium 138 Potassium 3.9 Chloride 107 Carbon Dioxide 24 BUN 8 Creatinine 0.70
--- NOTE | 2020-05-01 18:26 | PC.NURSE ---
Report called to SHAE Chaney at [facility] at 18:15. Informed her we are awaiting ambulance transport ETA of [id number].
[2020-05-04 11:15] LABS: von Willebrand Factor Ag 117 % (50-217)
--- NOTE | 2020-05-27 09:28 | PM.TDS ---
Transfer Discharge Sum: Prov Provider Date of admission: 04/29/20 01:29 Primary care physician: Chip Knapp, PA Admitting clinician: Tonia Arellano DO Consults: 04/28/20 22:04 Consult to Physician Routine Comment: Consulting Provider: Dameon Stevens Reason for consultation: Possible cholecystitis Has provider been notified: Yes 04/29/20 Consult to Physician Routine Comment: SPOKE WITH DR. RUFF Consulting Provider: Denzel Ruff call center operator/MD group to consult: Dr Ruff (hematology) Reason for consultation: von willebrand (probably will need procedure, may need infusion pre-treat) Has provider been notified: Yes Consult to Physician Routine Comment: SPOKE WITH DR. ZAMAN Consulting Provider: Boris Layne call center operator/MD group to consult: Dr. Zaman Reason for consultation: elevated liver enzymes Has provider been notified: Yes DS: Admitting Diagnosis Admitting Diagnosis Admitting Diagnosis: Sepsis DS: Discharge Diagnosis Discharge Diagnosis (1) Abdominal pain: Qualifiers: Abdominal location: right upper quadrant Qualified Code(s): R10.11 - Right upper quadrant pain Code(s): R10.9 - Unspecified abdominal pain Status: Acute Assessment and Plan: 05/01/20 16:18 Alee Acuña is a 35 year old female moderately obese with a medical history of von Willebrand apparently patient ate fried chicken and developed severe right upper quadrant pain nausea and vomiting and presented emergency department for further evaluation patient had a CT scan of the abdomen suspected gallbladder disease as well as elevated liver enzymes, patient does not have history liver disease or alcohol, hepatitis panel is negative, patient is seen by surgery service recommending patient may need MRCP and consult GI for further recommendation and ordered HIDA scan which is pending, patient is seen by both GI service and surgery service, HIDA scan is recommended for further evaluation and management, because of her history of von Willebrand in the event patient needs surgery [employer] consulted. upon arrival patient had a fever elevated white, elevated lactic acid, tachycardia and tachypnea most likely sepsis most likely biliary source patient started on Zosyn will follow up on blood culture, states abdominal pain nausea or vomiting have subsided however is hungry and has headache. will continue home regimen, will monitor and further recommendation to follow. 0n 04/30 patient was feeling much better some nausea but no vomiting abdominal pain is better denies any fever or chills patient had MRCP he does show patient has cholecystitis, the surgery service would like patient to be transferred [facility], I spoke her hematology Dr. Quan Bui and he has accepted the patient I spoke with Dr. [facility] he has accepted the patient patient is waiting for the transfer. today 05/01 patient states feeling little better abdominal pain is better, still feels nausea, but no vomiting, denies any fever or chills, patient understands sees been accepted at [facility] we are waiting for transfer order, will continue to monitor (2) Sepsis: Qualifiers: Sepsis acute organ dysfunction status: without acute organ dysfunction Sepsis type: sepsis due to unspecified organism Qualified Code(s): A41.9 - Sepsis, unspecified organism Code(s): A41.9 - Sepsis, unspecified organism Status: Acute Assessment and Plan: upon arrival patient had a fever elevated white, elevated lactic acid, tachycardia and tachypnea most likely sepsis most likely biliary source patient started on Zosyn will follow up on blood culture (3) Von Willebrand disease, type I: Code(s): D68.0 - Von Willebrand's disease Status: Acute Assessment and Plan: will consult [employer] oncologist further recommendation (4) Elevated liver enzymes: Code(s): R74.8 - Abnormal levels o
== END 2020-05-01 18:45 | disposition short-term general hospital (02) | DRG 872 ==
LOC: ANHED 22:11 → ANHIMU 04-29 02:27
PROVIDERS: Internal Medicine Hematology & Oncology; Physician Assistant; Surgery; Admitting Provider Internal Medicine; Emergency Provider Emergency Medicine; PCP Physician Assistant; Visit Provider Family Medicine
DX: A41.9 Sepsis, unspecified organism (principal); K81.0 Acute cholecystitis; D68.0 Von Willebrand disease; Z68.41 Body mass index [BMI] 40.0-44.9, adult; K21.9 Gastro-esophageal reflux disease without esophagitis; E03.9 Hypothyroidism, unspecified; F41.9 Anxiety disorder, unspecified; R74.8 Abnormal levels of other serum enzymes; G43.909 Migraine, unspecified, not intractable, without status migrainosus; E66.9 Obesity, unspecified
CPT/HCPCS: 36415; 71046; 74177; 74183; 76376; 76705; 78226; 80048; 80053; 80074; 80076; 80307; 81003; 81025; 83520; 83605; 83690; 84484; 85025; 85027; 85246; 87040; 87077; 87186; 93005; 96365; 96375; 99285; A9270; A9537; A9577; J0131; J1200; J2270; J2405; J2543; J2765; J3360; J7030; Q9967

== ENCOUNTER → 2023-06-20 09:15 | Outpatient (CLI) | payer OTHER, SELFPAY ==
--- NOTE | ~2023-06-20 | US_ITS ---
EXAMINATION: US breast RT limited HISTORY: Rash of the right axilla and upper outer right breast TECHNIQUE: Limited axillary and right breast ultrasound is performed. FINDINGS: No suspicious cystic or solid mass is identified. There is a normal-appearing lymph node in the right axilla. IMPRESSION: No specific sonographic correlate is identified for the patient's breast rash. Further evaluation at this time should be based on clinical assessment. Continued follow-up physical examination is recomme nded. BI-RADS Category 1: Negative Reviewed, dictated and finalized at location [facility]. NG COACH IMPRESSION: No specific sonographic correlate is identified for the patient's breast rash. Further evaluation at this time should be based on clinical assessment. Continu ed follow-up physical examination is recommended. BI-RADS Category 1: Negative
== END ==
PROVIDERS: PCP Physician Assistant; Visit Provider Nurse Practitioner
DX: R21 Rash and other nonspecific skin eruption (principal); R92.8 Other abnormal and inconclusive findings on diagnostic imaging of breast
CPT/HCPCS: 76642

== ENCOUNTER 2024-05-18 09:58 | Outpatient (CLI) | payer OTHER, SELFPAY ==
--- NOTE | ~2024-05-18 | MR_ITS ---
MRI of the right foot HISTORY: Second and third toe pain TECHNIQUE: Axial proton-density and proton-density fat-sat images, sagittal T1-weighted and STIR imag es, and coronal T1-weighted and proton-density fat-sat images were performed. FINDINGS: Bone marrow signals are unremarkable. No fracture, marrow edema, osteomyelitis, or perioste al reaction seen. Joint spaces are relatively well preserved throughout the visualized midfoot/forefo ot. No degenerative or erosive change seen. No significant joint effusion. Flexor and extensor tendons are intact. Intrinsic musculature of the foot is intact. There is minimal soft tissue edema about the second and third digits, nonspecific. No soft tissue mass or fluid colle ction. IMPRESSION: Minimal amorphous soft tissue edema of the second and third toes, nonspecific. No or osseous or articular abnormality seen. No abscess seen. Reviewed, dictated and finalized at [facility].
== END 2024-05-18 09:59 | disposition home or self-care (01) ==
PROVIDERS: PCP Physician Assistant; Visit Provider Podiatrist Foot & Ankle Surgery
DX: G57.61 Lesion of plantar nerve, right lower limb (principal); M79.671 Pain in right foot; M66.371 Spontaneous rupture of flexor tendons, right ankle and foot
CPT/HCPCS: 73718

== ENCOUNTER 2024-07-03 15:35 | Outpatient (CLI) | payer OTHER, SELFPAY ==
--- NOTE | ~2024-07-03 | CT_ITS ---
EXAMINATION: CT foot RT wo con DATE: 07/03/2024 16:04 INDICATION: Right foot and ankle pain. TECHNIQUE: Computed tomography (CT) of the right foot and ankle was performed without intravenous con trast. Automated exposure control and iterative reconstruction technique were employed. The dose-luis th product was 154.85 mGy-cm. COMPARISON: Right foot MRI 05/18/2024. FINDINGS: Bone alignment is normal. No fracture. There is mild osteoarthritis of first metatarsophala ngeal joint. There are enthesophytes at the posterior and plantar aspects of calcaneal tuberosity. IMPRESSION: 1. Mild osteoarthritis of first metatarsophalangeal joint. Reviewed, dictated and finalized at location [facility]. A [employer]
== END 2024-07-03 15:36 | disposition home or self-care (01) ==
LOC: MICIMG 15:37
PROVIDERS: PCP Physician Assistant; Visit Provider Podiatrist Foot & Ankle Surgery
DX: M77.51 Other enthesopathy of right foot and ankle (principal); M79.671 Pain in right foot; M66.371 Spontaneous rupture of flexor tendons, right ankle and foot; M19.071 Primary osteoarthritis, right ankle and foot
CPT/HCPCS: 73700